=== PATIENT | male | born 1975 | race Caucasian/White ===

== ENCOUNTER 2022-03-05 08:22 | Emergency (ER) | payer OTHER, SELFPAY ==
[2022-03-05] VITALS (9 sets, daily range): BP systolic 133–162; BP diastolic 79–99; PULSE 81–100; RESP 18–24; TEMP 36.9; O2SAT 93–98; BMI 34.3
--- NOTE | 2022-03-05 08:33 | DI.RAD.S_ITS ---
PROCEDURE: XR CHEST 1V INDICATIONS: chest pain TECHNIQUE: One view of the chest was acquired. COMPARISON: None. FINDINGS: Surgical changes and devices: None. Lungs and pleura: Lungs are clear. No pleural effusions or pneumothorax. Low lung volumes. Mediastinum: Mediastinal contours appear normal. Heart size is normal. Bones and chest wall: No suspicious bony lesions. Overlying soft tissues appear unremarkable. IMPRESSION: No acute radiographic abnormality. Low lung volumes. Dictated by: Nate Olivares M.D. on 03/05/2022 at 9:14 Approved by: Nate Olivares M.D. on 03/05/2022 at 9:15
[2022-03-05 08:50] LABS: Add Manual Diff / Slide Review NO; Basophils Absolute Auto 0 /uL (0-100); Basophils Percent Auto 0.5 % (0-2); Eosinophils Absolute Auto 200 /uL (0-450); Eosinophils Percent Auto 2.5 % (2-4); Hematocrit 44.2 % (41-53); Hemoglobin 14.8 g/dL (13.5-17.5); Lymphocytes Absolute Auto 2300 /uL (1100-4500); Lymphocytes Percent Auto 31.5 % (25-40); Mean Corpuscular HGB Conc 33.4 % (30-36); Mean Corpuscular Hemoglobin 30.5 PG (26-34); Mean Corpuscular Volume 91.3 fL (80-100); Monocytes Absolute Auto 400 /uL (0-900); Monocytes Percent Auto 6.2 % (3-14); Neutrophils Absolute Auto 4300 /uL (1500-7000); Neutrophils Percent Auto 59.3 % (50-75); Platelet Count 240 X10^3/uL (150-400); Red Blood Cell Count 4.84 X10^6/uL (4.5-5.9); Red Cell Distribution Width 13.6 % (11.6-14.8); White Blood Cell Count 7.2 X10^3/uL (4.5-11.0)
[2022-03-05 08:56] LABS: INR 1.1 (0.9-1.3); Prothrombin Time 12.2 SECONDS (10.1-12.7)
[2022-03-05 08:59] LABS: PTT Partial Thromboplastin Tim 30 SECONDS (26-36)
[2022-03-05 09:00] LABS: Alanine Aminotransferase 79 IU/L (<50); Albumin 4.6 g/dL (3.5-5.0); Albumin Globulin Ratio 1.1 (1.0-2.8); Alkaline Phosphatase 85 U/L (38-126); Aspartate Aminotransferase 72 IU/L (17-59); BUN Creatinine Ratio 16.3 (6-22); Bilirubin Total 0.4 mg/dL (0.2-1.3); Blood Urea Nitrogen 15 mg/dL (9-20); Calcium 9.6 mg/dL (8.4-10.2); Carbon Dioxide 28 mmol/L (22-32); Chloride 102 mmol/L (98-107); Creatine Kinase 169 U/L (55-170); Estimated Glomerular Filt Rate > 60 mL/min (>60); Globulin 4.1 g/dL (1.7-4.1); Glucose 150 mg/dL (70-100); HEMOLYSIS < 15 (0-50); Lipase 126 U/L (23-300); Magnesium 1.7 mg/dL (1.6-2.3); Potassium 3.9 mmol/L (3.4-5.1); Sodium 138 mmol/L (137-145); Total Protein 8.7 g/dL (6.3-8.2)
[2022-03-05 09:12] LABS: Troponin I < 0.012 ng/mL (0.01-0.034)
[2022-03-05 09:15] LABS: CKMB % Relative Index 0.8 % (1.5-5.0); Creatine Kinase MB 1.36 ng/mL (<2.37)
--- NOTE | 2022-03-05 10:08 | ED_ITS ---
HPI - Arrhythmia/Palpitations General Chief Complaint: Arrhythmia/Palpitations Stated Complaint: flutter in chest Time Seen by Provider: 03/05/22 10:00 Source: patient Mode of arrival: Ambulatory History of Present Illness HPI narrative: Patient drove himself here from work. Complains of palpitations that started at 6:00 a.m. symptoms have resolved since arrival. Denies any chest pain just palpitations in his chest. No dyspnea no nausea no vomiting no diaphoresis. No syncope. No headache. Patient has had this off and on for the past 1 year. He is assigned to primary care Dr. Neal but has not seen him yet. No recent exertional chest pain or dyspnea. Denies any history of hypertension hypercholesteremia or smoking. No primary family history of coronary disease or arrhythmia. Denies any drug use. No prior history workup for palpitations. This started a year ago. Does not occur every day. Is intermittent. Today did have lightheadedness which is new for him. EKG does show PVCs. Related Data Allergies Allergy/AdvReac Type Severity Reaction Status Date / Time No Known Drug Allergies Allergy Verified 03/05/22 08:33 Review of Systems Review of Systems Narrative: GENERAL: negative chills, fatigue, malaise, fever, sweats. HEENT: negative sinus pain, ear pain, sore throat RESPIRATORY: negative dyspnea, cough CARDIOVASCULAR: negative chest pain, positive palpitations GASTROINTESTINAL: negative nausea, vomiting, abdominal pain : negative dysuria, frequency, hematuria MUSCULOSKELETAL: negative muscle or bony pain SKIN: negative rash, skin lesions NEUROLOGIC: negative weakness, numbness, positive dizziness ROS Unobtainable: All systems reviewed & are unremarkable except as noted in HPI and below Patient History Social History Smoking Status: Unknown if ever smoked Smoking Status: Unknown if ever smoked alcohol intake frequency: 0-2 drinks per day Substance Use Type: does not use Exam Narrative Exam Narrative: GENERAL: in no distress, not toxic not dyspneic HEAD: Normocephalic. EYES: Pupils equal round ENT: Mucous membranes moist. NECK: Trachea midline. CARDIOVASCULAR: Regular rate and rhythm without murmurs RESPIRATORY: Clear to auscultation. Breath sounds equal bilaterally. No wheezes, rales, or rhonchi. GASTROINTESTINAL: Abdomen soft, non-tender EXTREMITIES: No gross deformities. BACK: No flank tenderness. NEURO: AOx4. SKIN: Warm and dry PSYCH: Not anxious, is cooperative Initial Vital Signs Initial Vital Signs: Vital Signs Temperature 98.4 F 03/05/22 08:28 Pulse Rate 97 H 03/05/22 08:28 Respiratory Rate 19 03/05/22 08:28 Blood Pressure 162/99 H 03/05/22 08:28 Pulse Oximetry 97 03/05/22 08:28 Oxygen Delivery Method 03/05/22 08:28 Scores HEART Score Heart Score history: Slightly Suspicious Heart Score EKG: Non-Specific repolarization disturbance Heart Score Age: 45-64 years old Heart Score risk factors: No known risk factors Heart Score troponin: < or = to normal limit Heart Score Total: 2 Course Orders Ordered: ED Orders 03/05/22 08:33 XR chest 1V Stat 03/05/22 08:40 Complete Blood Count AUTO DIFF Stat Comprehensive Metabolic Panel Stat Lipase Stat Magnesium Stat Partial Thromboplastin Time Stat Prothrombin Time INR Stat Troponin & CK Cardiac Panel Stat 03/05/22 08:43 EKG-12 Lead Stat 03/05/22 10:21 Troponin & CK Cardiac Panel Stat Vital Signs Vital signs: Vital Signs - 8 hr 03/05/22 08:28 03/05/22 08:29 03/05/22 08:30 Temperature 98.4 F Pulse Rate 97 H Respiratory Rate 19 Blood Pressure 162/99 H 162/99 H Pulse Oximetry 97 93 Oxygen Delivery Method Room Air 03/05/22 08:30 03/05/22 09:00 03/05/22 09:00 Temperature Pulse Rate 100 H 90 Respiratory Rate 24 Blood Pressure 133/79 Pulse Oximetry 98 96 Oxygen Delivery Method 03/05/22 09:30 03/05/22 09:30 03/05/22 10:00 Temperature Pulse Rate 82 Respiratory Rate 23 Blood Pressure 133/85 138/81 Pulse Oximetry 96 Oxygen Delivery Method 03/05/22 10:00 03/05/22 10:30 03/05/22 10:30 Temperature Pulse Rate 85 81 Respiratory Rate 21 18 Blood Pressure 134/88 Pulse Oximetry 96 98 Oxygen Delivery Method 03/05/22 11:00 03/05/22 11:00 03/05/22 11:33 Temperature Pulse Rate 86 86 Respiratory Rate 18 18 Blood Pressure 133/85 133/85 Pulse Oximetry 97 98 Oxygen Delivery Method Room Air MDM - Arrhythmia/Palpitations Lab Data 03/05/22 08:40 03/05/22 08:40 Labs: Lab Results 03/05/22 03/05/22 03/05/22 Range/Units 08:40 08:40 08:40 WBC 7.2 (4.5-11.0) X10^3/uL RBC 4.84 (4.5-5.9) X10^6/uL Hgb 14.8 (13.5-17.5) g/dL Hct 44.2 (41-53) % MCV 91.3 (80-100) fL MCH 30.5 (26-34) PG MCHC 33.4 (30-36) % RDW 13.6 (11.6-14.8) % Plt Count 240 (150-400) X10^3/uL Neut % (Auto) 59.3 (50-75) % Lymph % (Auto) 31.5 (25-40) % [place] % (Auto) 6.2 (3-14) % Eos % (Auto) 2.5 (2-4) % Baso % (Auto) 0.5 (0-2) % Neut # (Auto) 4300 (1668-6405) /uL Lymph # (Auto) 2300 (3058-5652) /uL [place] # (Auto) 400 (0-900) /uL Eos # (Auto) 200 (0-450) /uL Baso # (Auto) 0 (0-100) /uL PT 12.2 (10.1-12.7) SECONDS INR 1.1 (0.9-1.3) APTT 30 (26-36) SECONDS Sodium 138 (137-145) mmol/L Potassium 3.9 (3.4-5.1) mmol/L Chloride 102 (98-107) mmol/L Carbon Dioxide 28 (22-32) mmol/L BUN 15 (9-20) mg/dL Creatinine 0.92 (0.66-1.25) mg/dL Estimated GFR > 60 (>60) mL/min BUN/Creatinine Ratio 16.3 (6-22) Glucose 150 H (70-100) mg/dL Calcium 9.6 (8.4-10.2) mg/dL Magnesium 1.7 (1.6-2.3) mg/dL Total Bilirubin 0.4 (0.2-1.3) mg/dL AST 72 H (17-59) IU/L ALT 79 H (<50) IU/L Alkaline Phosphatase 85 (38-126) U/L Total Creatine Kinase 169 (55-170) U/L CK-MB (CK-2) 1.36 (<2.37) ng/mL CK-MB (CK-2) Rel Index 0.8 L (1.5-5.0) % Troponin I < 0.012 (0.01-0.034) ng/mL Total Protein 8.7 H (6.3-8.2) g/dL Albumin 4.6 (3.5-5.0) g/dL Globulin 4.1 (1.7-4.1) g/dL Albumin/Globulin Ratio 1.1 (1.0-2.8) Lipase 126 (23-300) U/L 03/05/22 Range/Units 10:21 WBC (4.5-11.0) X10^3/uL RBC (4.5-5.9) X10^6/uL Hgb (13.5-17.5) g/dL Hct (41-53) % MCV (80-100) fL MCH (26-34) PG MCHC (30-36) % RDW (11.6-14.8) % Plt Count (150-400) X10^3/uL Neut % (Auto) (50-75) % Lymph % (Auto) (25-40) % [place] % (Auto) (3-14) % Eos % (Auto) (2-4) % Baso % (Auto) (0-2) % Neut # (Auto) (8320-2427) /uL Lymph # (Auto) (8626-9867) /uL [place] # (Auto) (0-900) /uL Eos # (Auto) (0-450) /uL Baso # (Auto) (0-100) /uL PT (10.1-12.7) SECONDS INR (0.9-1.3) APTT (26-36) SECONDS Sodium (137-145) mmol/L Potassium (3.4-5.1) mmol/L Chloride (98-107) mmol/L Carbon Dioxide (22-32) mmol/L BUN (9-20) mg/dL Creatinine (0.66-1.25) mg/dL Estimated GFR (>60) mL/min BUN/Creatinine Ratio (6-22) Glucose (70-100) mg/dL Calcium (8.4-10.2) mg/dL Magnesium (1.6-2.3) mg/dL Total Bilirubin (0.2-1.3) mg/dL AST (17-59) IU/L ALT (<50) IU/L Alkaline Phosphatase (38-126) U/L Total Creatine Kinase 156 (55-170) U/L CK-MB (CK-2) 1.24 (<2.37) ng/mL CK-MB (CK-2) Rel Index 0.8 L (1.5-5.0) % Troponin I < 0.012 (0.01-0.034) ng/mL Total Protein (6.3-8.2) g/dL Albumin (3.5-5.0) g/dL Globulin (1.7-4.1) g/dL Albumin/Globulin Ratio (1.0-2.8) Lipase (23-300) U/L Imaging Data Chest x-ray: Radiologist's Impresson: [place] [address] XRay Report Signed Patient: Mitul Ramirez MR#: [id number] : 1975 Acct:[id number] Age/Sex: 46 / M Date of Service: 03/05/22 Loc: ED Accession Number: [id number] ?? Procedure: XR chest 1V Ordering Provider: Reese Little MD PROCEDURE:? XR CHEST 1V ? INDICATIONS:? chest pain ? TECHNIQUE:? One view of the chest was acquired.? ? COMPARISON:? None. ? FINDINGS:? ? Surgical changes and devices:? None.? ? Lungs and pleura:? Lungs are clear.? No pleural effusions or pneumothorax.? Low lung volumes. ? Mediastinum:? Mediastinal contours appear normal.? Heart size is normal.? ? Bones and chest wall:? No suspicious bony lesions.? Overlying soft tissues appear unremarkable.? ? IMPRESSION:? No acute radiographic abnormality.? Low lung volumes. ? ? Dictated by: Nate Olivares M.D. on 03/05/2022 at 9:14 ? ? Approved by: Nate Olivares M.D. on 03/05/2022 at 9:15 ? ECG Data Interpretation: Sinus rhythm with sinus arrhythmia with frequent premature ventricular complexes. Incomplete right bundle-branch block. [facility] Narrative Medical decision making narrative: Patient drove himself here from work. Complains of palpitations that started at 6:00 a.m. symptoms have resolved since arrival. Denies any chest pain just palpitations in his chest. No dyspnea no nausea no vomiting no diaphoresis. No syncope. No headache. Patient has had this off and on for the past 1 year. He is assigned to primary care Dr. Neal but has not seen him yet. No recent exertional chest pain or dyspnea. Denies any history of hypertension hypercholesteremia or smoking. No primary family history of coronary disease or arrhythmia. Denies any drug use. No prior history workup for palpitations. This started a year ago. Does not occur every day. Is intermittent. Today did have lightheadedness which is new for him. EKG does show PVCs. After exam and history, CBC CMP troponin EKG chest x-ray have been ordered. Patient on monitor. TSH ordered as well. [facility] CC: Palpitations Complicating co-morbidities: None Data collected from: Patient Medical records reviewed: No previous visits Differential considered: Includes but not limited to CO/unstable angina/stable angina/atypical chest pain/palpitations Exam documented above, pertinent findings include: Regular rate and rhythm Von heart sounds Lab Test results independently reviewed as above. Pertinent findings: Troponin normal. CBC without leukocytosis CMP without renal injury Independently reviewed EKG as above Imaging studies independently reviewed: Chest x-ray no acute process Consultations: 12:30 p.m.. Cardiology, Dr. Souza finally did call back. Agrees with treatment plan patient can follow up with primary care for outpatient Holter monitor. No medications indicated at this time. Treatments: No medications indicated Re-evaluations: 11:22 a.m. Patient remains asymptomatic. We paged Cardiology Services an hour and half ago. Still no call back. Patient does not want to wait for call back. He desires discharge home. Return precautions reviewed with him. He will follow up with Dr. Neal for outpatient Holter monitor. Discussion: Appropriate for discharge home. No medications required. Cardiology service has not called back and patient desires discharge home. Appropriate for outpatient Holter monitor. Patient has low heart risk factors. Return precautions reviewed with him. He desires discharge home. Diagnosis: Palpitations Discharge Plan Departure Patient Disposition: Home Clinical Impression: Palpitations Instructions: Premature Ventricular Beats, DI for Arrhythmias Activity Restrictions/Additional Instructions: Please family doctor this week for re-evaluation and for scheduling for Holter monitor for your palpitations. Return if worse if any questions or concerns. Please reduce your caffeine intake. This can stimulate palpitations. Alcohol consumption can also trigger palpitations. Referrals: Oscar Neal, [Primary Care Provider] - Stand Alone Forms: Patient Portal/API
[2022-03-05 10:38] LABS: Creatine Kinase 156 U/L (55-170)
[2022-03-05 10:51] LABS: Troponin I < 0.012 ng/mL (0.01-0.034)
[2022-03-05 10:53] LABS: CKMB % Relative Index 0.8 % (1.5-5.0); Creatine Kinase MB 1.24 ng/mL (<2.37)
== END 2022-03-05 11:34 | disposition home or self-care (01) ==
PROVIDERS: Emergency Provider Emergency Medicine; PCP Family Medicine
DX: R00.2 Palpitations (principal); I49.3 Ventricular premature depolarization
CPT/HCPCS: 36415; 71045; 80053; 82550; 82553; 83690; 83735; 84484; 85025; 85610; 85730; 93005; 99283; 99284

== ENCOUNTER → 2022-03-11 10:26 | Outpatient (CLI) | payer OTHER, SELFPAY ==
[2022-03-11 11:01] LABS: Hemoglobin A1C% w Est Avg Glu 5.8 % (4.0-6.0)
[2022-03-11 11:02] LABS: Cholesterol 245 mg/dL (140-199); HDL Cholesterol 88 mg/dL (40-60); LDL Cholesterol Calculated 134 mg/dL (<100); Triglycerides 116 mg/dL (35-150)
[2022-03-11 11:32] LABS: TSH w/ Reflex to FT4 1.57 uIU/mL (0.47-4.68)
== END ==
PROVIDERS: PCP Family Medicine; Referring Provider Family Medicine; Visit Provider Family Medicine
DX: R00.2 Palpitations (principal); R03.0 Elevated blood-pressure reading, without diagnosis of hypertension; Z13.1 Encounter for screening for diabetes mellitus
CPT/HCPCS: 36415; 80061; 83036; 84443

== ENCOUNTER → 2022-03-24 16:07 | Outpatient (CLI) | payer OTHER, SELFPAY ==
--- NOTE | 2022-03-24 16:09 | DI.MRI.S_ITS ---
PROCEDURE: MR HEAD/BRAIN WO/W CON INDICATIONS: Surveillance of Pineal Glad Tumor TECHNIQUE: Noncontrast axial T1 spin echo, axial T2 fast spin echo, sagittal and axial FLAIR, coronal T2 fast spin echo, axial gradient echo, axial diffusion and ADC through the brain. After the administration of contrast, axial and coronal and sagittal 3D VIBE or T1 spin echo with fat saturation through the brain. COMPARISON: [facility], , MRI BRAIN W/WO CONTRAST, 12/15/2016, 17:00. FINDINGS: Image quality: Excellent. CSF Spaces: Basal cisterns are patent. No extra-axial fluid collections. Ventricles are normal in size and shape. Brain: No midline shift. No intracranial bleeds or masses. No change in minimal degree of patchy FLAIR signal elevation within the bifrontal periventricular white matter. 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 No abnormal intracranial enhancement. The brainstem appears normal. Diffusion-weighted images demonstrate no acute ischemic insults. No chronic ischemic insults. Normal intravascular flow voids are present. Skull and face: Calvarial marrow is normal in signal. Orbits appear normal. Sinuses: There is mild bilateral maxillary sinus mucosal thickening. Sinuses and mastoids otherwise appear clear. IMPRESSION: 1. No change in pineal cyst. 2. No change in minimal degree of bifrontal white matter disease, most suggestive of small vessel ischemic disease. Dictated by: Sofy Aguero M.D. on 03/26/2022 at 10:35 Approved by: Sofy Aguero M.D. on 03/26/2022 at 10:37
== END ==
PROVIDERS: PCP Family Medicine; Referring Provider Family Medicine; Visit Provider Family Medicine
DX: D49.7 Neoplasm of unspecified behavior of endocrine glands and other parts of nervous system (principal)
CPT/HCPCS: 70553; A9579

== ENCOUNTER → 2022-03-27 15:02 | Outpatient (CLI) | payer OTHER, SELFPAY | PROVIDERS: PCP Family Medicine; Referring Provider Family Medicine; Visit Provider Family Medicine | DX: R00.2 Palpitations (principal) | CPT/HCPCS: 93246 ==

== ENCOUNTER → 2023-11-25 10:03 | Outpatient (CLI) | payer OTHER, SELFPAY ==
[2023-11-25 10:48] LABS: Hemoglobin A1C% w Est Avg Glu 5.9 % (4.0-6.0)
[2023-11-25 11:01] LABS: Alanine Aminotransferase 59 IU/L (<50); Albumin 4.5 g/dL (3.5-5.0); Albumin Globulin Ratio 1.3 (1.0-2.8); Alkaline Phosphatase 73 U/L (38-126); Aspartate Aminotransferase 50 IU/L (17-59); BUN Creatinine Ratio 11.5 (6-22); Bilirubin Total 0.9 mg/dL (0.2-1.3); Blood Urea Nitrogen 12 mg/dL (9-20); Calcium 9.6 mg/dL (8.4-10.2); Carbon Dioxide 28 mmol/L (22-32); Chloride 103 mmol/L (98-107); Estimated Glomerular Filt Rate > 60 mL/min (>60); Globulin 3.6 g/dL (1.7-4.1); Glucose 102 mg/dL (70-100); HEMOLYSIS < 15 (0-50); Potassium 4.3 mmol/L (3.4-5.1); Sodium 137 mmol/L (137-145); Total Protein 8.1 g/dL (6.3-8.2)
== END ==
LOC: LAB 10:07
PROVIDERS: PCP Family Medicine; Referring Provider Family Medicine; Visit Provider Family Medicine
DX: R73.01 Impaired fasting glucose (principal); R79.89 Other specified abnormal findings of blood chemistry
CPT/HCPCS: 36415; 80053; 83036